=== PATIENT | female | born 1975 | race Caucasian/White ===

== ENCOUNTER 2016-06-16 08:19 | Day surgery (SDC) | payer MEDICAID ==
[~2016-06-16] VITALS: Ht 162.6 cm
--- NOTE | 2016-06-17 08:18 | OR ---
ADMIT: 06/16/2016 RM/LOC: [facility] MR#: [id number] [address] [address] STILESJOE PEDERSON [address] [place] [address] Operative/Delivery Room Report SEX: F AGE: 41 : 1975 SURGERY DATE: 06/16/2016 SURGEON: Lotus Arnold MD COMPUTER TERMINAL OPERATOR: None. PREPROCEDURE DIAGNOSES: 1. Lumbar disc degeneration. 2. Lumbosacral neuritis. POSTPROCEDURE DIAGNOSES: 1. Lumbar disc degeneration. 2. Lumbosacral neuritis. PROCEDURE PERFORMED: L5-S1 interlaminar epidural steroid injection. INDICATIONS FOR PROCEDURE: The patient is a pleasant female with history of chronic low back pain secondary to above mentioned diagnoses, comes here for planned lumbar epidural steroid injection. ANESTHESIA: Local without sedation. ESTIMATED BLOOD LOSS: Zero. COMPLICATIONS: None immediately evident. DESCRIPTION OF PROCEDURE: After the patient was seen in the preoperative area, vitals signs were taken. Prior to the procedure, the risks, benefits, and alternative therapies were discussed at length. Patient consent was obtained and updated. The patient was taken to the fluoroscopy suite and placed on the fluoroscopy table in the prone position. Pressure points were padded to comfort, monitors applied, and a timeout performed. Fluoroscopy was brought in. The patient was sterilely prepped and draped in the usual manner with ChloraPrep solution, and 1% lidocaine was used to anesthetize the appropriate needle entry site. Utilizing a midline approach, ADMIT: 06/16/2016 RM/LOC: [facility] MR#: [id number] [address] [address] JOE STILES [address] [place] [id number] Operative/Delivery Room Report SEX: F AGE: 41 : 1975 continuous loss of resistance technique with preservative-free normal saline and intermittent fluoroscopic guidance, the posterior epidural space was easily entered. Once the epidural space had been entered through L5-S1 the patient was injected with 2 mL of Isovue-300 and outlining of the posterior epidural space was observed with no evidence of vascular uptake and intrathecal migration. Next, a solution consisting of 10 mL of preservative- free normal saline and 80 mg of Depo-Medrol was injected. The needle was withdrawn. The patient was escorted back to the preoperative area and observed for a period of time. PLAN: Discharge instructions were given, followup scheduled. The patient was discharged home with a cdl a driver. Lotus Arnold MD/ kit JOB #: [id number] CC: Lotus Arnold MD, Attending Physician NO FAMILY PHYSICIAN, Family Physician
== END 2016-06-16 10:05 | disposition home or self-care (01) ==
LOC: SSS 08:19
PROC: 3E0S33Z Introduction of Anti-inflammatory into Epidural Space, Percutaneous Approach (ICD-10-PCS; principal; 2016-06-16)
PROC: 3E0S3BZ Introduction of Anesthetic Agent into Epidural Space, Percutaneous Approach (ICD-10-PCS; principal; 2016-06-16)
DX: G89.29 Other chronic pain (principal); M51.17 Intervertebral disc disorders with radiculopathy, lumbosacral region; Z79.899 Other long term (current) drug therapy; Z79.52 Long term (current) use of systemic steroids; Z88.8 Allergy status to other drugs, medicaments and biological substances

== ENCOUNTER 2016-07-14 10:04 | Day surgery (SDC) | payer MEDICAID ==
[~2016-07-14] VITALS: Ht 162.6 cm; Wt 161.0 kg
--- NOTE | 2016-07-15 08:09 | OR ---
ADMIT: 07/14/2016 RM/LOC: [facility] MR#: [id number] [address] [address] JOE STILES [address] [place] [address] Operative/Delivery Room Report SEX: F AGE: 41 : 1975 SURGERY DATE: 07/14/2016 SURGEON: Lotus Arnold MD STOCK BUYER: None. PREPROCEDURE DIAGNOSES: 1. Lumbar disk degeneration. 2. Lumbosacral neuritis. 3. Chronic low back pain. POSTPROCEDURE DIAGNOSES: 1. Lumbar disk degeneration. 2. Lumbosacral neuritis. 3. Chronic low back pain. PROCEDURE PERFORMED: L5-S1 interlaminar epidural steroid injection. INDICATIONS FOR PROCEDURE: The patient is a pleasant female with a history of chronic low back pain secondary to above-mentioned diagnoses, comes here for planned lumbar epidural steroid injection. ANESTHESIA: Local without sedation. ESTIMATED BLOOD LOSS: Zero. COMPLICATIONS: None immediately evident. DESCRIPTION OF PROCEDURE: After the patient was seen in the preoperative area, vitals signs were taken. Prior to the procedure, the risks, benefits, and alternative therapies were discussed at length. Patient consent was obtained and updated. The patient was taken to the fluoroscopy suite and placed on the fluoroscopy table in the prone position. Pressure points were padded to comfort, monitors applied, and a timeout performed. Fluoroscopy was brought in. The patient was sterilely prepped and draped in the usual manner with ChloraPrep solution, and 1% lidocaine was used to anesthetize the appropriate needle entry site. Utilizing a midline approach, ADMIT: 07/14/2016 RM/LOC: [facility] MR#: [id number] [address] [address] JOE STILES [address] [place] [address] Operative/Delivery Room Report SEX: F AGE: 41 : 1975 continuous loss of resistance technique with preservative-free normal saline and intermittent fluoroscopic guidance, the posterior epidural space was easily entered. Once the epidural space had been entered through L5-S1. The patient was injected with 2 mL of Isovue-300 and outlining of the posterior epidural space was observed with no evidence of vascular uptake and intrathecal migration. Next, a solution consisting of 10 mL of preservative- free normal saline and 80 mg of Depo-Medrol was injected. The needle was withdrawn. The patient was escorted back to the preoperative area and observed for a period of time. PLAN: Discharge instructions were given, followup scheduled. 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 Lotus Arnold MD/ kit JOB #: [id number] CC: Lotus Arnold MD, Attending Physician Luigi Li MD, Family Physician
== END 2016-07-14 11:45 | disposition home or self-care (01) ==
LOC: SSS 10:04 → WOR 10:05 → UNDOADMIN 10:05 → EDSTATUS 10:10 → SSS 11:45
PROC: 3E0S33Z Introduction of Anti-inflammatory into Epidural Space, Percutaneous Approach (ICD-10-PCS; principal; 2016-07-14)
PROC: B01BYZZ Fluoroscopy of Spinal Cord using Other Contrast (ICD-10-PCS; principal; 2016-07-14)
PROC: 3E0S3BZ Introduction of Anesthetic Agent into Epidural Space, Percutaneous Approach (ICD-10-PCS; principal; 2016-07-14)
DX: G89.29 Other chronic pain (principal); M51.17 Intervertebral disc disorders with radiculopathy, lumbosacral region; Z79.899 Other long term (current) drug therapy; Z88.8 Allergy status to other drugs, medicaments and biological substances

== ENCOUNTER 2016-08-31 23:46 | Emergency (ER) | payer MEDICAID ==
--- NOTE | 2016-09-04 01:31 | ER ---
ADMIT: 08/31/2016 RM/LOC: ER [facility] MR#: [id number] [address] [address] JOE STILES [address] [place] [address] Emergency Room Report SEX: F AGE: 41 : 1975 DATE: 08/31/2016 ADDENDUM: The patient was checked out to me by WILLARD Carcamo, with results of an ultrasound of her left lower extremity pending. The duplex ultrasounds were negative for DVT. I spoke with the patient. It sounds like she may be having some pain in her leg due to the fact that she is morbidly obese and she has been on her feet quite a bit. She states she does take quite a bit of naproxen daily and has been for some time. I told her she needs to take a break from naproxen and I will be giving her a prescription for Ultram. DIAGNOSIS: Left leg pain. DISPOSITION: She is to follow up with Dr. Arnold. Duncan Dickey MD/ kit JOB #: [id number] CC: Duncan Dickey MD, Attending Physician
--- NOTE | 2016-09-08 13:55 | ER ---
ADMIT: 08/31/2016 RM/LOC: ER [facility] MR#: [id number] [address] [address] JOE STILES [address] [place] [address] Emergency Room Report SEX: F AGE: 41 : 1975 DATE: 08/31/2016 BRIEF ADDENDUM: Please see my T-sheet for complete review of systems, past medical history, and physical exam. CHIEF COMPLAINT: Left foot and ankle pain. HISTORY OF PRESENT ILLNESS: A pleasant 41-year-old female, who presents with increasing left foot and ankle pain over the past day. The patient does have chronic comorbidities with back pain secondary to her weight. States she first noticed some swelling in her foot about a day ago, initially tried to rest this with an elevation and gradually progressed with increasing pain, difficulty walking over the last day. Primarily, complains in her left calf, anterior left foot extending into her knee. Admits to swelling and some tingling distally. Pain with movement. She does have chronic back pain, sees Jaqui Pemberton for this. MEDICATIONS: Takes naproxen 220 mg four tabs in the morning, two tabs at bedtime, as well as Cymbalta 20 mg daily. ALLERGIES: TO MOBIC. COURSE IN THE EMERGENCY ROOM: PHYSICAL EXAMINATION: GENERAL: The patient was seen and examined. She is afebrile, nontoxic. She is in no acute distress. MUSCULOSKELETAL: She does have some tenderness and swelling in her foot, primarily over the anterior left foot. The ankle is tender as well with some increased swelling. She does have significant tenderness over the left calf. The lower leg itself is quite swollen compared to the right, however, difficult to appreciate given her body habitus. She does have good pulses in the distal extremity. Cap refill is good. She is able to ambulate, however, this is limited by pain. SKIN: Warm and dry. CHEST: Nontender. No respiratory distress. No wheezes, rhonchi, or rales. HEART: Sounds are normal bilaterally. Given the fact that she is obese, she is a smoker, she is at increased risk for blood clots, proceed to get a venous Doppler of the left lower leg to rule out DVT that is pending at this time. She was given 1 g of Tylenol for pain control. The patient was handed off to Dr. Dickey, who will give final disposition. WILLARD Carcamo / Duncan Dickey MD / kit JOB #: [id number] CC: ADMIT: 08/31/2016 RM/LOC: [facility] MR#: [id number] [address] [address] [place] [address] Emergency Room Report SEX: F AGE: 41 : 1975 Duncan Dickey MD, Attending Physician
== END 2016-09-01 01:47 | disposition home or self-care (01) ==
LOC: ER 23:46
DX: M79.605 Pain in left leg (principal); F31.9 Bipolar disorder, unspecified